=== PATIENT | male | born 1970 | race Caucasian/White ===

== ENCOUNTER 2016-12-13 13:49 | Emergency (ER) | payer SELFPAY ==
--- NOTE | 2016-12-13 15:06 | RAD ---
INDICATION: Right hand injury. TECHNIQUE: 4 views of the right hand were obtained. FINDINGS: The bones are in normal alignment. No fracture is seen. Joint spaces appear maintained. IMPRESSION: NO EVIDENCE FOR FRACTURE.
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
[2016-12-13 17:04] VITALS: BP 136/86
== END 2016-12-13 17:03 | disposition home or self-care (01) ==
LOC: ED 13:49
DX: M79.641 Pain in right hand (principal); Y35.811A Legal intervention involving manhandling, law enforcement official injured, initial encounter; Y92.149 Unspecified place in prison as the place of occurrence of the external cause
CPT/HCPCS: 99282